=== PATIENT | male | born 1970 | race Caucasian/White ===

== ENCOUNTER 2017-02-02 05:05 | Emergency (ER) | payer OTHER ==
[~2017-02-02] VITALS: Ht 165.1 cm; Wt 94.0 kg
[~2017-02-02 05:05] MED LIST: AMOXICILLIN875 MG PO; BACTRIM,SEPT1 TABLET PO; KEFLEX500 MG PO; LEVOTHROID,S0.112 MG PO; MOBIC15 MG PO; NAPROSYN500 MG PO; PERCOCET 5/31 TABLET PO; TESSALON PERLE100 MG PO
[2017-02-02 05:07] VITALS: BP 146/84
[2017-02-02 06:08] LABS: HEMATOCRIT 42.9 % (38.0-50.0); MCH 30.1 PG (29.0-34.0); MCHC 34.7 G/DL (30.0-36.0); MCV 86.7 FL (86-99); MEAN PLAT.VOLUME 9.9 uM^3 (9.0-12.4); PLATELET COUNT 226 K/uL (156-360); RBC DIS.WIDTH-CV 12.4 % (11.8-14.6); RBC DIS.WIDTH-SD 39.3 % (39-53); RED BLOOD COUNT 4.95 M/uL (4.00-5.50); WHITE BLOOD COUNT 4.9 K/uL (4.1-10.2)
[2017-02-02 06:16] LABS: CHLORIDE 109 mEq/L (99-109); POTASSIUM 4.6 mEq/L (3.7-5.4); SODIUM 141 mEq/L (136-147)
[2017-02-02 06:17] LABS: GLUCOSE 117 mg/dL (70-99)
[2017-02-02 06:19] LABS: ANION GAP 9 MEQ/L (2-14)
[2017-02-02 06:21] LABS: GFR ESTIMATE (CALCULATED) > 59 mL/min/
[2017-02-02 06:22] LABS: UREA NITROGEN (BUN) 16 mg/dL (9-23)
== END 2017-02-02 08:28 | disposition left against medical advice (07) ==
LOC: EME 05:05
PROVIDERS: Emergency Medicine
DX: J02.9 Acute pharyngitis, unspecified (principal); R22.0 Localized swelling, mass and lump, head; F17.200 Nicotine dependence, unspecified, uncomplicated
CPT/HCPCS: 80048; 85027; 87651 90; 99281; 99283